=== PATIENT | female | born 1960 | race Asian ===

== ENCOUNTER → 2017-03-03 | Outpatient (CLI) | payer OTHER ==
[~2017-03-03] MED LIST: GADOBUTROL 10 ML VIAL IVP ONE
== END ==
LOC: FIMAGING 11:51
PROVIDERS: ATTEND Internal Medicine
DX: R42 Dizziness and giddiness (principal); H53.2 Diplopia; H51.9 Unspecified disorder of binocular movement
CPT/HCPCS: A9585

== ENCOUNTER → 2017-09-12 | Outpatient (CLI) | payer OTHER | LOC: FIMAGING 10:09 | PROVIDERS: ATTEND Internal Medicine | DX: Z12.31 Encounter for screening mammogram for malignant neoplasm of breast (principal); Z80.3 Family history of malignant neoplasm of breast ==

== ENCOUNTER → 2018-09-13 | Outpatient (CLI) | payer OTHER | LOC: FIMAGING 11:21 ==